=== PATIENT | female | born 2000 | race Caucasian/White ===

== ENCOUNTER 2021-12-24 23:53 | Emergency (ER) | payer OTHER ==
[~2021-12-24] VITALS: Ht 165.1 cm; Wt 63.6 kg
[2021-12-25 00:02] VITALS: BP 116/57; TEMP 98.1
[2021-12-25 01:55] VITALS: PULSE 79
[2021-12-26] MEDS ORDERED: PREDNISONE20 MG PO (05:22)
== END 2021-12-25 01:55 | disposition home or self-care (01) ==
LOC: COL.ER 23:53
PROVIDERS: Physician Assistant
DX: L50.9 Urticaria, unspecified (principal); Z28.310 Unvaccinated for COVID-19
CPT/HCPCS: J1200; J2930; J7030

== ENCOUNTER 2021-12-26 04:34 | Emergency (ER) | payer OTHER ==
[~2021-12-26] VITALS: Ht 165.1 cm; Wt 65.5 kg
[2021-12-26 04:42] VITALS: BP 180/90; TEMP 97.3
[2021-12-26] MEDS ORDERED: PREDNISONE20 MG PO (05:22)
[2021-12-26 05:37] VITALS: PULSE 83
== END 2021-12-26 05:37 | disposition home or self-care (01) ==
LOC: COL.ER 04:34
DX: L50.0 Allergic urticaria (principal); Z28.310 Unvaccinated for COVID-19
CPT/HCPCS: J7512